=== PATIENT | male | born 1965 | race Caucasian/White ===

== ENCOUNTER 2018-12-04 15:26 | Observation (INO) | payer OTHER ==
[~2018-12-04] VITALS: Ht 182.9 cm; Wt 95.1 kg
[~2018-12-04 15:26] MED LIST: NAPROSYN500 MG PO; NORVASC5 MG PO; PENICILLIN V P500 MG PO; PRINIVIL20 MG PO; TENORMIN50 MG PO
[2018-12-04 15:28] VITALS: BP 231/160
[2018-12-04 15:47] LABS: ABSOLUTE BASOPHILS 0.1 thou/uL (0.0-0.2); ABSOLUTE LYMPHOCYTES 1.5 thou/uL (0.8-5.3); ABSOLUTE MONOCYTES 0.6 thou/uL (0.0-1.2); ABSOLUTE NEUTROPHILS 7.8 thou/uL (1.6-8.1); BASOPHILS 0.8 %; EOSINOPHILS 0.1 %; HEMATOCRIT 44.2 % (42.0-52.0); HEMOGLOBIN 15.3 gm/dL (14.0-18.0); LYMPHOCYTES 15.2 %; MCH 31.1 pg (26.0-34.0); MCHC 34.5 g/dL (28.0-37.0); MCV 90.1 fL (80.0-100.0); MONOCYTES 5.5 %; MPV 7.4 fl. (7.2-11.1); NUCLEATED RBCS 0 /100WBC; PLATELET COUNT* 283 thou/uL (150-400); POLYS 78.4 %; RBC 4.91 mil/uL (4.50-6.00); RDW-CV 13.7 % (10.5-14.5)
[2018-12-04 16:05] LABS: ANION GAP 12 mmol/L (7-16); BUN 15 mg/dL (7-18); CALCIUM 9.2 mg/dL (8.5-10.1); CHLORIDE 100 mmol/L (98-107); CO2 27 mmol/L (21-32); CREATININE 1.4 mg/dL (0.6-1.3); GLUCOSE 120 mg/dL (70-99); POTASSIUM 3.2 mmol/L (3.5-5.1); SODIUM 139 mmol/L (136-145); TROPONIN-I LEVEL <0.06 ng/mL (<0.06)
[2018-12-04 16:08] LABS: URINE BILIRUBIN NEGATIVE (Negative); URINE BLOOD TRACE (Negative); URINE CLARITY CLEAR; URINE COLOR YELLOW; URINE GLUCOSE-RANDOM NEGATIVE (Negative); URINE KETONES NEGATIVE (Negative); URINE LEUKOCYTES-REFLEX NEGATIVE (Negative); URINE NITRITE-REFLEX NEGATIVE (Negative); URINE PROTEIN TRACE (Negative); URINE SPECIFIC GRAVITY <= 1.005 (1.005-1.030); URINE UROBILINOGEN 0.2 E.U./dl (0.2-1.0)
[2018-12-04 16:08] LABS: ALBUMIN 4.4 g/dL (3.4-5.0); ALKALINE PHOSPHATASE 105 U/L (46-116); SGOT 30 U/L (15-37); SGPT 42 U/L (30-65); TOTAL BILIRUBIN 0.7 mg/dL (<0.1-1.0); TOTAL PROTEIN 7.8 g/dL (6.4-8.2)
[2018-12-04 16:16] LABS: AMP/METHAMP Negative (Negative); BARBITURATES Negative (Negative); BENZODIAZEPINES Negative (Negative); COCAINE Negative (Negative); METHADONE Negative (Negative); OPIATES Negative (Negative); PCP Negative (Negative); THC Negative (Negative)
[2018-12-04 16:20] LABS: SQUAMOUS NONE SEEN /LPF (0-3)
[2018-12-04 16:25] LABS: BACTERIA-REFLEX None Seen /HPF (None Seen); CRYSTALS None Seen /LPF (None Seen); HYALINE CASTS 0-3 Few /LPF (None Seen); MUCUS None Seen strn/LPF (None Seen); URINE RBC 0-2 Rare /HPF (0-2); URINE WBC-REFLEX None Seen /HPF (0-5)
--- NOTE | 2018-12-04 17:41 | NUR ---
PT GIVEN SANDWICH AND JUICE PER REQUEST. LAW ENFORCEMENT AT BEDSIDE. PT CALM AND COOPERATIVE AT THIS TIME.
[2018-12-04 17:42] LABS: PROTIME 10.7 Seconds (9.20-11.50)
[2018-12-04 20:20] VITALS: BP 150/104
[2018-12-04 20:30] VITALS: BP 156/97
[2018-12-05] VITALS (7 sets, daily range): BP systolic 111–179; BP diastolic 81–128
--- NOTE | 2018-12-05 03:00 | NUR ---
PT TRANSFER FROM ED AND ADMITTED TO THE FLOOR AT 2018. COURT MONITOR IN PLACE. BP ELEVATED, OTHER THAN THAT VITAL SIGNS STABLE. PT IS UP ADLIB. PT HAD A HEADACHE AND PRN MEDS GIVEN ORDERED. ASSESSMENT COMPLETED DISCUSSED PLAN OF CARE, PT UNDERSTANDS. BED LOCKED AND CALL LIGHT WITHIN REACH. FALL PRECAUTIONS IN PLACE. PT IS A SMOKER AND WAS ASKED IF HE WANTED NICOTINE PATCH AND PT DID NOT WANT IT AT THIS TIME. HOURLY ROUNDING DONE AND ALL NEEDS MET. NURSING WILL CONTINUE TO MONITOR.
--- NOTE | 2018-12-05 08:00 | NUR ---
AM ASSESSEMENT COMPLETE, DEFER TO COMPUTER. 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 DENIES CHEST PAIN, DIZZINESS OR ANY DISCOMFORT AT THIS TIME. ANXIOUS - RESTLESS STATING WANTING TO GO HOME. RESSURANCE GIVEN. BP ELEVATED, 174/113. CARDIOLOGY TO SEE PATIENT. IN BED RESTING WITH HOB ELEVATED - CALL LIGHT WITHIN REACH. WILL MONITOR.
[2018-12-05 10:19] LABS: CHOLESTEROL 164 mg/dL (<200); HDL CHOLESTEROL 40 mg/dL (>40); LDL CHOLESTEROL 112 mg/dL (<100); SERUM ASSESSMENT Clear; TC:HDL 4.1 Ratio (Not establshd); TRIGLYCERIDE 64 mg/dL (<150); VLDL 13 mg/dL (<40)
[2018-12-05] MEDS ORDERED: NORVASC10 MG PO (10:23)
[2018-12-05] MEDS ORDERED: FLOMAX0.4 MG PO (10:23)
--- NOTE | 2018-12-05 10:47 | NUR ---
PATIENT WANTINING TO LEAVE - NURSE SPOKE WITH CARDIOLOGY AND PRIMARY DOCTOR - PATIENT WILL HAVE TO LEAVE AMA. PATIENT EDUCATED ON LEAVING AMA AND RISK FACTORS, FINALLY AND SEVERAL LONG DISCUSSION WITH PATIENT REGARDING ELEVATED BLOOD PRESSURE AND OTHER CARDIAC FACTORS PATIENT AGREED TO STAY AND HAVE TEST COMPLETED AT THIS TIME. WILL CONTINUE TO MONITOR.
--- NOTE | 2018-12-05 12:15 | NUR ---
MET WITH PT TO DISCUSS HOME SITUATION/DC PLANNING. PT STATES HE AND DTR ARE MOVING OUT OF FAMILY HOME, HAS SOME FAMILY STRESS GOING ON AND HE IS WORKING ON DECREASING IT. TALKED WITH HIM ABOUT WAYS TO MANAGE. PT IS INDEPENDENT AND ACTIVE. USES NO EQUIPMENT AND WORKS OUTSIDE THE HOME. DENIES ANY DC NEEDS. IS UNISURED BUT STATES IN 2 WEEKS WILL HAVE INSURANCE. FOLLOWS WITH DR PADILLA. STATES HE CAN AFFORD HIS MEDS AND AWARE OF Soonr LUIS. DENIES OTHER NEEDS. TALKED WITH HIM ABOUT [facility] AND HOW TO MANAGE HIS HOSPITAL BILL.
--- NOTE | 2018-12-05 12:38 | EKG ---
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
--- NOTE | 2018-12-05 12:47 | 2DMMODE ---
[place] [address] 2 D/M-MODE ECHOCARDIOGRAM Name: GURWINDER GALVAN Room: [address] Moises Deutsch#: [id number] Admission: 12/04/18 Attend Phys: Darya Reich, Discharge: Date of : 65 Date of Service: 12/05/18 1247 Report #: [id number] THIS REPORT FOR: //name// APPROVED REPORT Study performed: 12/05/2018 10:44:09 EXAM: Comprehensive 2D, Doppler, and color-flow Echocardiogram Patient Location: In-Patient Room #: [facility] Status: routine BSA: 2.20 HR: 66 bpm BP: 174/113 mmHg Rhythm: NSR Other Information Study Quality: Good Indications Chest Pain 2D Dimensions IVSd: 13.22 (7-11mm) LVOT Diam: 22.83 (18-24mm) LVDd: 48.22 mm PWd: 11.25 (7-11mm) Ascending Ao: 36.08 (22-36mm) LVDs: 25.87 (25-40mm) Aortic Root: 35.31 mm Volumes Left Atrial Volume (Systole) LA ESV Index: 25.90 mL/m2 Aortic Valve AoV Peak Jose J.: 1.20 m/s AO Peak Gr.: 5.80 mmHg LVOT Max P.08 mmHg AO Mean Gr.: 3.16 mmHg LVOT Mean P.95 mmHg LVOT Max V: 1.13 m/s AO V2 VTI: 24.40 cm LVOT Mean V: 0.83 m/s ROSALEE (VTI): 3.85 cm2 LVOT V1 VTI: 22.96 cm Mitral Valve E/A Ratio: 0.56 MV Decel. Time: 308.72 ms MV E Max Jose J.: 0.37 m/[place] [address] 2 D/M-MODE ECHOCARDIOGRAM Name: GURWINDER GALVAN Room: [address] [place]#: [id number] Admission: 12/04/18 Attend Phys: Darya Reich, Discharge: Date of : 65 Date of Service: 12/05/18 1247 Report #: [id number] MV PHT: 89.53 ms MVA (PHT): 2.46 cm2 TDI E/Lateral E': 4.63 E/Medial E': 4.11 Medial E' Jose J.: 0.09 m/s Lateral E' Jose J.: 0.08 m/s Pulmonary Valve PV Peak Jose J.: 0.92 m/s PV Peak Gr.: 3.41 mmHg Left Ventricle The left ventricle is normal size. There is normal LV segmental wall motion. Mild septal hypertrophy is present. Left ventricular systolic function is normal. The left ventricular ejection fraction is within the normal range. LVEF is 55-60%. Grade I - abnormal relaxation pattern. Right Ventricle The right ventricle is normal size. The right ventricular systolic function is normal. Atria The left atrium size is normal. The right atrium size is normal. Aortic Valve The aortic valve is normal in structure. No aortic regurgitation is present. There is no aortic valvular stenosis. Mitral Valve The mitral valve is normal in structure. Trace mitral regurgitation. No evidence of mitral valve stenosis. Tricuspid Valve The tricuspid valve is normal in structure. Unable to assess PA pressure. Trace tricuspid regurgitation. Pulmonic Valve The pulmonary valve is normal in structure. There is no pulmonic valvular regurgitation. Great Vessels The aortic root is normal in size. IVC is normal in size and collapses >50% [place] [address] 2 D/M-MODE ECHOCARDIOGRAM Name: GURWINDER GALVAN Angelo Room: [address]#: [id number] Admission: 12/04/18 Attend Phys: Darya Reich, Discharge: Date of : 65 Date of Service: 12/05/18 1247 Report #: [id number] Pericardium There is no pericardial effusion. <Conclusion> LVEF is 55-60%. There is normal LV segmental wall motion. There is no aortic valvular stenosis. No aortic regurgitation is present. Trace mitral regurgitation. Grade I - abnormal relaxation pattern. <ELECTRONICALLY SIGNED> By: Kaushal Larsen MD, FACC 12/05/18 1247 124 124 Kaushal Larsen MD, FACC /INF
--- NOTE | 2018-12-05 14:08 | EKG ---
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: AMNA : 1965 Requested By: Baldemar Potts Order Number: [id number] Reading MD: Jan Rao Measurements Intervals [place] Rate: 85 P: 8 NM: 137 QRS: -11 QRSD: 75 T: 126 QT: 437 QTc: 520 Interpretive Statements Sinus rhythm Abnormal T, consider ischemia, lateral leads Prolonged QT interval Compared to ECG 12/04/2018 15:31:15 T-wave abnormality now present Possible ischemia now present Prolonged QT interval now present Left ventricular hypertrophy no longer present Electronically Signed On 12-05-2018 14:08:15 CDT by Jan Rao [email or web address] <ELECTRONICALLY SIGNED> By: Jan Rao MD, [facility] 12/05/18 1408 1335 1335 Jan Rao MD, [facility] /EPI
--- NOTE | 2018-12-05 15:17 | CARDNUC ---
[place] [address] CARDIAC NUCLEAR IMAGING REPORT Name: GURWINDER GALVAN [address] [place]#: [id number] Admission: 12/04/18 Attend Phys: Darya Reich, Discharge: Date of : 65 Date of Service: 12/05/18 1517 Report #: [id number] THIS REPORT FOR: //name// APPROVED REPORT Imaging Protocol: Rest Tc-99m/Stress Tc-99m 1 day Study performed: 12/05/2018 09:05:00 Indication: Chest pain Patient Location: In-Patient Room #: 226 Stress Tech: Nasreen Moran Stress Nurse: Ruth Ramirez RN Ht: 6 ft 0 in Wt: 209 lbs BSA: 2.17 m2 BMI: 28.34 Medical History Medical History: HTN, Medications: Atenalol, Amlodipine, Aspirin 325, Lisinopril, NTG prn Allergies: none Cardiac Risk Factors: age, tobacco, HTN, family history Exercise History: Physically active Meds Held (24 hrs): Atenalol Resting Data Rest SPECT myocardial perfusion imaging was performed in supine position 60 minutes following the intravenous injection of 10.8 mCi of Tc-99m Sestamibi. Time of rest injection: 11:40 The images were gated to evaluate regional wall motion and calculate left ventricular ejection fraction. Administration Route: IV Administration Site: Right Hand Pharmacologic Stress Pharmacologic stress test was performed by injecting Regadenoson 0.4 mg IV push over 10-15 seconds immediately followed by the intravenous injection of 33.1 mCi of Tc-99m Sestamibi. Time of stress injection: 13:25 Administration Route: IV Administration Site: Right Hand Heart Rate at time of stress injection: 122 bpm. Gated Stress SPECT was performed 40 [place] [address] CARDIAC NUCLEAR IMAGING REPORT Name: GURWINDER GALVAN Room: [address]Maria Del Carmen#: [id number] Admission: 12/04/18 Attend Phys: Darya Reich, Discharge: Date of : 65 Date of Service: 12/05/18 1517 Report #: [id number] injection. The images were gated to evaluate regional wall motion and calculate left ventricular ejection fraction. Prone imaging was performed. Stress Test Details Stress Test: Pharmacologic stress testing performed using 0.4 mg of regadenoson per 5 mL given IV over 10 seconds. Reason for pharmacologic stress test: HTN. HR Max Heart Rate (APMHR): 167 bpm Resting HR: 82 bpm Target HR (85% APMHR): 141 bpm Max HR Achieved: 122 bpm % of APMHR: 73 Recovery HR: 102 bpm HR response to stress: Normal HR response to stress BP Resting BP: 204/133 mmHg Max BP: 162/100 mmHg Recovery BP: 180/104 mmHg BP response to stress: Normal blood pressure response to stress. ECG Resting ECG: Sinus Rhythm Stress ECG: Sinus Rhythm ST Change: nonspecific st depression Arrhythmia: APC's Recovery ECG: Sinus Rhythm Recovery ST Change: None Recovery Arrhythmia: None Clinical Reason for Termination: Completed protocol Stress Symptoms: Nausea Nurse Comments Dr Larsen changed order to Nadege d/t initial BP of 244/126. Zofran given post procedure for continued nausea. Stress ECG Conclusion negative ecg Study Quality Study: Good Artifact: [place] [address] CARDIAC NUCLEAR IMAGING REPORT Name: GURWINDER GALVAN Room: [address]#: [id number] Admission: 12/04/18 Attend Phys: Darya Reich, Discharge: Date of : 65 Date of Service: 12/05/18 1517 Report #: [id number] Lung Uptake: Normal Study Data At rest, the left ventricular ejection fraction was 67%.. Post stress, the left ventricular ejection was 69%.. SSS: 1 SRS: 3 SDS: -2 Perfusion Review of rest data reveals normal perfusion, without perfusion defects.Imaging obtained following vasodilator stress demonstrate a similar, uniform uptake of tracer without defects. Prone imaging was normal. LVEDV is normal.No segental wall motion abnormality seen. Images were reviewed using [employer]ix. Wall Motion normal all segments Nuclear Conclusion ECG Findings: negative for ischemia Clinical Findings: negative for ischemia Nuclear Findings: negative for ischemia Exercise Capacity: not assessed Left Ventricular Function: normal Risk Study: low Negative perfusion nuclear stress test for ischemia or infarct. <Conclusion> negative ecg <ELECTRONICALLY SIGNED> By: Kaushal Larsen MD, FAC 12/05/18 1517 1517 1517 Kaushal Larsen MD, FACC /INF
--- NOTE | 2018-12-05 15:45 | NUR ---
DR GILLILAND CALLING REPORT STRESS TEST RESULT NEGATIVE. CALL PLACED TO PRIMARY DOCTOR TO NOTIFY.
[2018-12-05] MEDS ORDERED: PRINIVIL20 MG PO (16:00)
[2018-12-05] MEDS ORDERED: CHLORTHALIDONE25 MG PO (16:16)
--- NOTE | 2018-12-05 16:50 | NUR ---
LAWYER PROBATE TRACKING WITH NO CHANGE IN RHYTHM. NO COMPLAINTS OF CHEST PAIN, DIZZINESS OR ANY DISCOMFORT. IV FLUIDS INFUSING. BP REMAINS ELEVATED, ORDERS RECEIVED PATIENT GIVEN ADDITIONAL HTN MEDS PER ORDERS. WILL CONTINUE WITH PLAN OF CARE.
--- NOTE | 2018-12-05 19:14 | NUR ---
VITALS RECHECKED - BP 157/92 PULSE 78 - DENIES CHEST PAIN, DIZZINESS OR ANY DISCOMFORT AT THIS TIME. DISCHARGE ORDERS RECEIVED, BP WITHIN PARAMETERS FOR DISCHARGE PER ORDERS. TRANSIT DEPARTMENT CLERK TRACKING SR. TRANSIT DEPARTMENT CLERK AND SALINE LOCK DC'D. ALL PERSONAL ITEMS COLLECTED BY PATIENT. CALL PLACED TO PHARMACY - PATIENT HOME MEDICATIONS COLLECTED FROM PHARMACY AND RETURNED TO PATIENT FOR DISCHARGE. EDUCATED ON DISCHARGE INSTRUCTIONS, VERBALIZED UNDERSTANDING HAVING NO QUESTIONS. GIVEN WRITTEN DISHCARGE INSTRUCTIONS FOR REINFOCEMENT TEACHING.
== END 2018-12-05 19:39 | disposition home or self-care (01) ==
LOC: M.ERS 15:26 → M.TBA-ER 19:27 → M.ERS 19:27 → M.TBA-ER 19:31 → M.2W 19:31
PROVIDERS: Nurse Practitioner Family; Registered Nurse; ADMIT Internal Medicine
DX: R07.89 Other chest pain (principal); I16.1 Hypertensive emergency; N40.0 Benign prostatic hyperplasia without lower urinary tract symptoms; F41.9 Anxiety disorder, unspecified; R73.03 Prediabetes; F17.210 Nicotine dependence, cigarettes, uncomplicated